=== PATIENT | male | born 1985 | race Caucasian/White ===

== ENCOUNTER 2017-04-07 20:55 | Emergency (ER) | payer MEDICAID ==
[~2017-04-07] VITALS: Ht 175.3 cm; Wt 76.5 kg
[2017-04-07 20:59] VITALS: Ht 175.3 cm; Wt 76.5 kg
[2017-04-07] MEDS ORDERED: CEPHALEXIN 500 MG CAP PO ONE (21:30)
[2017-04-07] MEDS ORDERED: ACETAMINOPHEN 325 MG TAB PO ONE (21:30)
[2017-04-07] MEDS ORDERED: TRIMETHOPRIM/SULFAMETHOX (DS) TAB PO ONE (21:30)
[2017-04-07] MEDS ORDERED: LIDOCAINE 2% (MDV) 20 ML INJ INJ ONE (22:30)
[2017-04-07] MEDS ORDERED: DIPHTH/TET/ACEL PERTUSS (ADULT) 0.5 ML VIAL IM* ONE (23:00)
[2017-04-07] MEDS ORDERED: HYDROCODONE/APAP (5/325) TAB PO ONE (23:30)
[2017-04-07] MEDS ORDERED: SULF1TAB31 PO (23:38)
[2017-04-07] MEDS ORDERED: IBUP-1542 PO (23:38)
[2017-04-07] MEDS ORDERED: CEPH-443 PO (23:38)
--- NOTE | 2017-04-07 23:46 | ERD ---
ER Documentation Chief Complaint Date/Time DATE: 04/07/17 TIME: 23:41 Chief Complaint L hand swelling and possible abscess for 3 days HPI 31-year-old male patient with no significant past medical history recently used heroin and injected into his left and it started to develop a redness and swelling over his left hand. Reports that he is left-handed. States that he injected about 40 cc of heroin. Reports that this is his first time injecting. Denies any fever, chills, loss of sensation, loss of range of motion, nausea, vomiting, headache, weakness, numbness or tingling, hallucinations. Denies any suicidal or homicidal ideations. ROS All systems reviewed and are negative except as per history of present illness. Medications Home Meds Active Scripts Ibuprofen* (Motrin*) 600 Mg Tab, 600 MG PO Q6, #30 TAB Prov:ROMAN IVEY PA-C 04/07/17 Cephalexin* (Keflex*) 500 Mg Capsule, 500 MG PO QID for 10 Days, CAP Prov:ROMAN IVEY PA-C 04/07/17 Sulfamethoxazole/Trimethoprim* (Bactrim Ds* Tablet) 1 Each Tablet, 1 TAB PO BID for 10 Days, TAB Prov:ROMAN IVEY PA-C 04/07/17 Allergies Allergies: Coded Allergies: No Known Allergy (Unverified , 04/07/17) PMhx/Soc Medical and Surgical Hx: pt denies Medical Hx, pt denies Surgical Hx History of Surgery: No (PT DENIES MEDICAL AND SURGICAL HX.) Hx Alcohol Use: Yes Hx Substance Use: Yes (HEROIN, MARIJUANA) Hx Tobacco Use: Yes Smoking Status: Never smoker Physical Exam Vitals Vital Signs Date Time Temp Pulse Resp B/P Pulse Ox O2 Delivery O2 Flow Rate FiO2 04/07/17 20:59 99.1 109 18 117/68 99 Physical Exam Const: [id number], well-nourished. In no acute distress. Head: Atraumatic, normocephalic Eyes: Normal Conjunctiva without injection ENT: Normal external ear, nose and mouth. Neck: Full range of motion. No meningismus. Resp: Clear to auscultation bilaterally. No wheezing, rhonchi, rales, or crackles. No accessory muscle use. No retractions. Cardio: Regular rate and rhythm, no murmurs Skin: No petechiae or rashes Back: No midline tenderness. No CVA tenderness. Ext: No cyanosis, or edema. Cap refill less than 2 seconds. Distal pulses intact bilaterally. Tenderness to palpation of a edematous and erythematous dorsal aspect of patient's left hand with 2 noted areas of fluctuation with surrounding induration. No bleeding noted. Full range of motion of the PIP, DIP, MCP joints of the bilateral hands. No lymphatic streaking. Neur: Awake and alert. Normal gait and coordination. Muscle strength 5/5. Sensation intact bilaterally. Psych: Normal Mood and Affect Results 24 hrs Current Medications Medications (Trade) Dose Ordered Sig/Ilsa Route PRN Reason Start Time Stop Time Status Last Admin Dose Admin Trimethoprim/ Sulfamethoxazole (Bactrim (Ds)) 1 tab ONCE ONCE PO 04/07/17 21:30 04/07/17 21:31 DC 04/07/17 21:35 Cephalexin (Keflex) 500 mg ONCE ONCE PO 04/07/17 21:30 04/07/17 21:31 DC 04/07/17 21:35 Acetaminophen (Tylenol Tab) 650 mg ONCE ONCE PO 04/07/17 21:30 04/07/17 21:31 DC 04/07/17 21:35 Lidocaine (Xylocaine 2% (Mdv) 20 ml) 20 ml ONCE ONCE INJ 04/07/17 22:30 04/07/17 22:31 DC Diphtheria/ Tetanus/Acell Pertussis (Adacel) 0.5 ml ONCE ONCE IM* 04/07/17 23:00 04/07/17 23:01 DC 04/07/17 23:15 Acetaminophen/ Hydrocodone Bitart (Rio (5/325)) 1 tab ONCE ONCE PO 04/07/17 23:30 04/07/17 23:31 DC 04/07/17 23:14 Procedures/MDM This is a 31-year-old male patient with a recent use of heroin injection presents to the ED with a swollen painful left hand. Patient is afebrile and nontoxic-appearing. Patient has normal vital signs. Patient was given his first dose of Bactrim and Keflex here in the ED. Patient was treated with Tylenol 650 mg and Rio 5-325 mg here in the ED with improvement of his pain. Patient gave consent to perform incision and drainage. 11 blade scalpel used to make a small incision. Abscess Incision and Drainage with irrigation by me: Location: [Dorsal aspect of left hand] Anesthesia: [5 cc local 2% Lidocaine] Technique: [Irrigated. Disrupted loculations w/ instrumentation ] Packing: [13 cm packing placed of the incision made in the superior portion of patient's left hand and 3 cm pf packing placed in the incision made near the third knuckle] Complications: [Neurovascularly intact post procedure] Copious purulent discharge drained from the abscess. Patient is strictly instructed to complete the course of antibiotics. Keflex and Bactrim was prescribed to patient. Instructed patient to return to the ED sooner for any worsening symptoms. Follow up with primary care physician or return to the ED in 2 days for a wound check. Patient's questions were answered. Patient understood and agreed with discharge plan. Departure Diagnosis: Primary Impression: Abscess of hand, left Additional Impression: Heroin use Condition: Stable Patient Instructions: Understanding Heroin Abuse and Addiction, Abscess, Incision And Drainage Referrals: [facility] YOU HAVE RECEIVED A MEDICAL SCREENING EXAM AND THE RESULTS INDICATE THAT YOU DO NOT HAVE A CONDITION THAT REQUIRES URGENT TREATMENT IN THE EMERGENCY DEPARTMENT. FURTHER EVALUATION AND TREATMENT OF YOUR CONDITION CAN WAIT UNTIL YOU ARE SEEN IN YOUR DOCTORS OFFICE WITHIN THE NEXT 1-2 DAYS. IT IS YOUR RESPONSIBILITY TO MAKE AN APPOINTMENT FOR FOLOW-UP CARE. IF YOU HAVE A PRIMARY DOCTOR --you should call your primary doctor and schedule an appointment IF YOU DO NOT HAVE A PRIMARY DOCTOR YOU CAN CALL OUR PHYSICIAN REFERRAL HOTLINE AT IF YOU CAN NOT AFFORD TO SEE A PHYSICIAN YOU CAN CHOSE FROM THE FOLLOWING [facility] CLINICS [facility] [address] [facility] [address] [facility] [address] [facility] [address] [facility] [address] [facility]. [facility]. [address] [facility]. [facility] YOU HAVE RECEIVED A MEDICAL SCREENING EXAM AND THE RESULTS INDICATE THAT YOU DO NOT HAVE A CONDITION THAT REQUIRES URGENT TREATMENT IN THE EMERGENCY DEPARTMENT. FURTHER EVALUATION AND TREATMENT OF YOUR CONDITION CAN WAIT UNTIL YOU ARE SEEN IN YOUR DOCTORS OFFICE WITHIN THE NEXT 1-2 DAYS. IT IS YOUR RESPONSIBILITY TO MAKE AN APPOINTMENT FOR FOLOW-UP CARE. IF YOU HAVE A PRIMARY DOCTOR --you should call your primary doctor and schedule and appointment IF YOU DO NOT HAVE A PRIMARY DOCTOR YOU CAN CALL OUR PHYSICIAN REFERRAL HOTLINE AT . IF YOU CAN NOT AFFORD TO SEE A PHYSICIAN YOU CAN CHOSE FROM THE FOLLOWING [facility] INSTITUTIONS: [facility] [address] [place] [address] [facility] [address] [place] [address] [facility] [address] [place] [address] [facility] URGENT C[facility]/SPECIALTIES Additional Instructions: Follow up in 2 days in your clinic for wound check. You must finish all of your prescribed antibiotics. Call your primary care doctor TOMORROW for an appointment during the next 2 days.See the doctor sooner or return here if your condition worsens before your appointment time - fever, worsening swelling or redness or pain, etc. ROMAN IVEY PA-C Apr 07, 2017 23:46
[2017-04-07 23:53] VITALS: BP 119/57; PULSE 89; RESP 14; TEMP 98.6
== END 2017-04-07 23:54 | disposition home or self-care (01) ==
LOC: FTE 20:55
DX: L02.512 Cutaneous abscess of left hand (principal); F11.10 Opioid abuse, uncomplicated; Z23 Encounter for immunization; Z87.891 Personal history of nicotine dependence
CPT/HCPCS: 10060; 90471; 90715; Z7502; Z7610

== ENCOUNTER 2017-04-10 23:30 | Emergency (ER) | payer MEDICAID ==
[~2017-04-10] VITALS: Ht 175.3 cm; Wt 78.0 kg
[~2017-04-10 23:30] MED LIST: CEPH-443 PO; IBUP-1542 PO; SULF1TAB31 PO
[2017-04-10 23:32] VITALS: Ht 175.3 cm; Wt 78.0 kg
--- NOTE | 2017-04-11 02:18 | ERD ---
ER Documentation Chief Complaint Date/Time DATE: 04/11/17 TIME: 02:13 Chief Complaint wound check left hand HPI 31-year-old male patient with a past medical history of heroin use presents to the ED for a wound check of the left hand which developed an abscess from injecting heroin. Denies any fever, chills, loss of sensation or loss of range of motion. He reports that pain is improved. Patient also states that he has been taking his Bactrim and Keflex consistently. ROS All systems reviewed and are negative except as per history of present illness. Medications Home Meds Active Scripts Ibuprofen* (Motrin*) 600 Mg Tab, 600 MG PO Q6, #30 TAB Prov:ROMAN IVEY-C 04/07/17 Cephalexin* (Keflex*) 500 Mg Capsule, 500 MG PO QID for 10 Days, CAP Prov:ROMAN IVEY-C 04/07/17 Sulfamethoxazole/Trimethoprim* (Bactrim Ds* Tablet) 1 Each Tablet, 1 TAB PO BID for 10 Days, TAB Prov:ROMAN IVEY-C 04/07/17 Allergies Allergies: Coded Allergies: No Known Allergy (Unverified , 04/07/17) PMhx/Soc Medical and Surgical Hx: pt denies Medical Hx, pt denies Surgical Hx History of Surgery: No (PT DENIES MEDICAL AND SURGICAL HX.) Hx Alcohol Use: Yes Hx Substance Use: Yes (HEROIN, MARIJUANA) Hx Tobacco Use: Yes Smoking Status: Current every day smoker Physical Exam Vitals Vital Signs Date Time Temp Pulse Resp B/P Pulse Ox O2 Delivery O2 Flow Rate FiO2 04/10/17 23:32 97.8 93 20 132/75 98 Physical Exam Const: Gog-cgg-wxclyotel, well-nourished. In no acute distress. Head: Atraumatic, normocephalic Eyes: Normal Conjunctiva without injection ENT: Normal external ear, nose and mouth. Neck: Full range of motion. No meningismus. Resp: Clear to auscultation bilaterally. No wheezing, rhonchi, rales, or crackles. No accessory muscle use. No retractions. Cardio: Regular rate and rhythm, no murmurs Skin: No petechiae or rashes Back: No midline tenderness. No CVA tenderness. Ext: No cyanosis, or edema. Cap refill less than 2 seconds. Distal pulses intact bilaterally. Left hand abscess on the dorsal aspect with decreased swelling and erythema. Pain is improved. Full range of motion with bilateral wrists with flexion, extension, medial and lateral deviation. Full range of motion with PIP, DIP, MCP joints. No lymphatic streaking. Neur: Awake and alert. Normal gait and coordination. Muscle strength 5/5. Sensation intact bilaterally. Psych: Normal Mood and Affect Procedures/MDM This is a 31-year-old male patient with a past medical history of heroin use presents the ED with a wound check of his left hand for an abscess. Patient is afebrile and nontoxic-appearing. The swelling has decreased as well as the erythema. The packing was removed without difficulty. There is still spontaneous drainage noted. There is low suspicion for cellulitis, deep space infection, fractures, dislocations, or other emergent conditions. Patient is appropriate for outpatient management with current antibiotics prescribed. Follow up with primary care physician in 1-2 days. Instructed patient to return to the ED sooner for any worsening symptoms. Patient's questions were answered. Patient understood and agreed with discharge plan. Patient discharged stable. Departure Diagnosis: Primary Impression: Encounter for wound re-check Condition: Stable Patient Instructions: Wound Care, Abscess Drainage, Georgina-Anal Abscess, Abx Only , Abscess, Packing Removal Referrals: [facility] YOU HAVE RECEIVED A MEDICAL SCREENING EXAM AND THE RESULTS INDICATE THAT YOU DO NOT HAVE A CONDITION THAT REQUIRES URGENT TREATMENT IN THE EMERGENCY DEPARTMENT. FURTHER EVALUATION AND TREATMENT OF YOUR CONDITION CAN WAIT UNTIL YOU ARE SEEN IN YOUR DOCTORS OFFICE WITHIN THE NEXT 1-2 DAYS. IT IS YOUR RESPONSIBILITY TO MAKE AN APPOINTMENT FOR FOLOW-UP CARE. IF YOU HAVE A PRIMARY DOCTOR --you should call your primary doctor and schedule an appointment IF YOU DO NOT HAVE A PRIMARY DOCTOR YOU CAN CALL OUR PHYSICIAN REFERRAL HOTLINE AT IF YOU CAN NOT AFFORD TO SEE A PHYSICIAN YOU CAN CHOSE FROM THE FOLLOWING [facility] [address] [facility] [address] [facility] [address] [facility] [address] [facility] [address] [facility]. [facility] [address] [facility]. [facility] YOU HAVE RECEIVED A MEDICAL SCREENING EXAM AND THE RESULTS INDICATE THAT YOU DO NOT HAVE A CONDITION THAT REQUIRES URGENT TREATMENT IN THE EMERGENCY DEPARTMENT. FURTHER EVALUATION AND TREATMENT OF YOUR CONDITION CAN WAIT UNTIL YOU ARE SEEN IN YOUR DOCTORS OFFICE WITHIN THE NEXT 1-2 DAYS. IT IS YOUR RESPONSIBILITY TO MAKE AN APPOINTMENT FOR FOLOW-UP CARE. IF YOU HAVE A PRIMARY DOCTOR --you should call your primary doctor and schedule and appointment IF YOU DO NOT HAVE A PRIMARY DOCTOR YOU CAN CALL OUR PHYSICIAN REFERRAL HOTLINE AT . IF YOU CAN NOT AFFORD TO SEE A PHYSICIAN YOU CAN CHOSE FROM THE FOLLOWING [facility] INSTITUTIONS: [facility] [address] [place] [address] [facility] [address] [place] [address] [facility] [address] [place] [address] [facility] URGENT CARE/SPECIALTIES Additional Instructions: Follow up in 2 days in your clinic for wound check. Complete all of your antibiotcs. Call your primary care doctor TOMORROW for an appointment during the next 2 days.See the doctor sooner or return here if your condition worsens before your appointment time. ROMAN IVEY PA-C Apr 11, 2017 02:18
== END 2017-04-11 02:41 | disposition home or self-care (01) ==
LOC: FTE 23:30
DX: Z48.01 Encounter for change or removal of surgical wound dressing (principal); F17.210 Nicotine dependence, cigarettes, uncomplicated
CPT/HCPCS: 99281